=== PATIENT | male | born 1940 | race Caucasian/White ===

== ENCOUNTER 2024-06-10 20:42 | Emergency (ER) | payer MEDICARE, BC ==
[~2024-06-10] VITALS: Ht 185.4 cm; Wt 80.5 kg
[2024-06-10 20:45] VITALS: TEMP 97.5
[2024-06-10 22:28] VITALS: BP 135/68
[2024-06-10 22:56] VITALS: PULSE 84; RESP 16; O2SAT 98
== END 2024-06-10 22:56 | disposition home or self-care (01) ==
LOC: ER 20:43
DX: S00.03XA Contusion of scalp, initial encounter (principal); W19.XXXA Unspecified fall, initial encounter; Y93.89 Activity, other specified; Y92.89 Other specified places as the place of occurrence of the external cause; Y99.8 Other external cause status
CPT/HCPCS: 70450; 72125; 99284; A6222; A6258; A6446